=== PATIENT | female | born 1995 | race American Indian/Alaskan Native ===

== ENCOUNTER 2020-04-21 09:09 | Emergency (ER) | payer OTHER ==
[2020-04-21 09:25] VITALS: BP 115/56
[2020-04-21] MEDS ORDERED: IBUPROFEN 600 MG TAB PO ONE (09:51)
--- NOTE | 2020-04-21 09:58 | Emergency Department Report ---
ED Abdominal Pain HPI - General Chief Complaint: Abdominal Pain Stated Complaint: ABD PAIN Time Seen by Provider: 04/21/20 09:43 Source: patient Mode of arrival: Ambulatory Limitations: No Limitations - History of Present Illness Initial Comments: Patient is a 24-year-old female presents emergency room with complaints of suprapubic abdominal cramping that began 2 days ago. 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 She denies any vaginal bleeding, dysuria, urinary frequency, nausea, vomiting, diarrhea, vaginal discharge or irritation. She denies any past medical history allergies medications. She endorses marijuana use and occasional alcohol use. no sick contacts, no recent travel. - Related Data Allergies Allergy/AdvReac Type Severity Reaction Status Date / Time No Known Allergies Allergy Unverified 04/21/20 09:20 ED Review of Systems ROS: Stated complaint: ABD PAIN Other details as noted in HPI Comment: All other systems reviewed and negative ED Past Medical Hx - Past Medical History Previous Medical History?: No - Surgical History Past Surgical History?: No - Social History Smoking Status: Never Smoker Substance Use Type: None ED Physical Exam - General Limitations: No Limitations General appearance: alert, in no apparent distress - Head Head exam: Present: atraumatic, normocephalic - Eye Eye exam: Present: normal appearance - ENT ENT exam: Present: mucous membranes moist - Respiratory Respiratory exam: Present: normal lung sounds bilaterally. Absent: respiratory distress, wheezes, rales, rhonchi, stridor, chest wall tenderness, accessory muscle use, decreased breath sounds, prolonged expiratory - Cardiovascular Cardiovascular Exam: Present: regular rate, normal rhythm, normal heart sounds. Absent: systolic murmur, diastolic murmur, rubs, gallop - GI/Abdominal GI/Abdominal exam: Present: soft, normal bowel sounds, other (negative murphys sign, no mcburneys point ttp, no suprapubic ttp, negative crisostomo turners and walter sign). Absent: distended, tenderness, guarding, rebound, rigid - Neurological Exam Neurological exam: Present: alert, oriented X3 - Psychiatric Psychiatric exam: Present: normal affect, normal mood - Skin Skin exam: Present: warm, dry, intact ED Course Vital Signs 04/21/20 09:23 Temperature 98.9 F Pulse Rate 73 Respiratory 18 Rate Blood Pressure 115/56 O2 Sat by Pulse 99 Oximetry ED Medical Decision Making - Lab Data Lab Results 04/21/20 04/21/20 Range/Units 09:24 09:55 Urine Color Straw (Yellow) Urine Turbidity Clear (Clear) Urine pH 7.0 (5.0-7.0) Ur Specific [place] 1.011 (1.003-1.030) Urine Protein <15 mg/dl (Negative) mg/dL Urine Glucose (UA) Neg (Negative) mg/dL Urine Ketones Neg (Negative) mg/dL Urine Blood Neg (Negative) Urine Nitrite Neg (Negative) Urine Bilirubin Neg (Negative) Urine Urobilinogen < 2.0 (<2.0) mg/dL Ur Leukocyte Esterase Neg (Negative) Urine WBC (Auto) 1.0 (0.0-6.0) /HPF Urine RBC (Auto) 1.0 (0.0-6.0) /HPF U Epithel Cells (Auto) 1.0 (0-13.0) /HPF Urine HCG, Qual Negative (Negative) - Medical Decision Making Patient is a 24-year-old female presents emergency room with complaints of suprapubic abdominal cramping that began 2 days ago. 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 She denies any vaginal bleeding, dysuria, urinary frequency, nausea, vomiting, diarrhea, vaginal discharge or irritation. She denies any past medical history allergies medications. She endorses marijuana use and occasional alcohol use. no sick contacts, no recent travel. Vitals are normal. On exam no abdominal tenderness to palpation, no guarding, no rebound, no rigidity, no peritoneal signs, normal bowel sounds, negative McBurney's point tenderness, negative Nieves sign, negative Crisostomo Lopez or Walter sign. UA is normal. Urine is negative. Patient given ibuprofen and symptoms improved. Do not suspect acute intra-abdominal pathology as patient is tolerating p.o. intake, no nausea, no vomiting, no diarrhea, no fever, no abdominal tenderness to palpation, advised patient that she would need to be reexamined within 2 days. Discussed in detail with patient very strict return precautions. Advised patient May take Tylenol or ibuprofen as needed for discomfort. Increase your water intake. Follow-up with a primary care doctor in the next 2 days for reexamination. Return to emergency room immediately for any new or worsening symptoms including but not limited to worsening abdominal pain, fever, unable to tolerate by mouth intake, constant vomiting or diarrhea, etc. - Differential Diagnosis IUP, ectopic, PMS, UTI, abdominal wall muscle strain, gas pain Critical care attestation.: If time is entered above; I have spent that time in minutes in the direct care of this critically ill patient, excluding procedure time. ED Disposition Clinical Impression: Suprapubic cramping Disposition: - TO HOME OR SELFCARE Is pt being admited?: No Does the pt Need Aspirin: No Condition: Stable Instructions: Abdominal Pain (ED) Additional Instructions: May take Tylenol or ibuprofen as needed for discomfort. Increase your water intake. Follow-up with a primary care doctor in the next 2 days for reexamination. Return to emergency room immediately for any new or worsening symptoms including but not limited to worsening abdominal pain, fever, unable to tolerate by mouth intake, constant vomiting or diarrhea, etc. Referrals: [facility] [Provider Group] - 2-3 Days [facility] [Outside] - 3-5 Days DENISE SMITH MD [Staff Physician] - 2-3 Days Forms: Accompanied Note, Work/School Release Form(ED) Print Language: CROATIAN
[2020-04-21 10:43] LABS: Bilirubin,Urine NEG (Negative); Blood,Urine NEG (Negative); Color,Urine Straw (Yellow); Protein,Urine <15 mg/dL mg/dL (Negative); Urobilinogen,Urine < 2.0 mg/dL (<2.0)
[2020-04-21 10:49] LABS: HCG Qualitative,Urine Negative (Negative)
== END 2020-04-21 11:52 | disposition home or self-care (01) ==
LOC: ED 09:09
DX: R10.30 Lower abdominal pain, unspecified (principal)
CPT/HCPCS: 81001; 81025; 99283